=== PATIENT | female | born 1980 | race Caucasian/White ===

== ENCOUNTER 2016-09-04 18:40 | Emergency (ER) | payer MEDICAID ==
[2016-07-12 16:23] VITALS: BMI 23.7
[~2016-09-04 18:40] MED LIST: ADDERALL XR 2020 MG; AMBIEN10 MG PO; ASPIRIN325 MG PO; CELEXA40 MG PO; CLONAZEPAM2 MG/TAB PO; DEMEROL50 MG PO; DESERYL100 MG PO; HYDROCODONE-APA1 TAB PO; IBUPROFEN600 MG PO; NEXIUM40 MG PO; PHENERGAN25 M1 PO; SOMA350 MG PO; XANAX1 MG PO
== END 2016-09-04 20:28 | disposition home or self-care (01) ==
LOC: D.ER 18:40
DX: S93.401A Sprain of unspecified ligament of right ankle, initial encounter (principal); W19.XXXA Unspecified fall, initial encounter; Y93.89 Activity, other specified; Y92.019 Unspecified place in single-family (private) house as the place of occurrence of the external cause

== ENCOUNTER 2016-09-05 13:15 | Emergency (ER) | payer MEDICAID ==
[2016-07-12 16:23] VITALS: BMI 23.7
== END 2016-09-05 15:45 | disposition home or self-care (01) ==
LOC: D.ER 13:15
DX: S82.891A Other fracture of right lower leg, initial encounter for closed fracture (principal); X58.XXXA Exposure to other specified factors, initial encounter; Y93.89 Activity, other specified; Y92.89 Other specified places as the place of occurrence of the external cause

== ENCOUNTER 2016-10-27 21:03 | Emergency (ER) | payer MEDICAID ==
[2016-07-12 16:23] VITALS: BMI 23.7
[2016-10-27 23:09] LABS: BASOPHILS 0.3 % (0.0-2.0); HEMATOCRIT 39.1 % (36.0-48.0); IMMATURE GRANULOCYTES 0.3 % (0-5); LYMPHOCYTES 28.4 % (15-50); MCH 30.9 pg (26.0-34.0); MCHC 33.2 g/dL (31.0-37.0); MCV 92.9 fL (80.0-100.0); MEAN PLATELET VOLUME 9.8 fL (7.4-10.4); MONOCYTES 5.9 % (2-11); NEUTROPHILS 62.1 % (40-80); PLATELET COUNT 242 10x3/uL (130-400); RBC 4.21 10x6/uL (4.00-5.40); WBC 6.8 10x3/uL (4.8-10.8)
[2016-10-27 23:29] LABS: ALBUMIN 3.4 g/dL (3.4-5.0); ALKALINE PHOSPHATASE 61 U/L (46-116); ALT (SGPT) 39 U/L (10-68); BILIRUBIN - TOTAL 0.37 mg/dL (0.2-1.3); CALC OSMOLALITY 280 mosm/kg (275-300); CALCIUM 7.9 mg/dL (8.5-10.1); CHLORIDE - SERUM 106 mmol/L (98-107); CREATININE - SERUM 0.6 mg/dL (0.6-1.3); GLUCOSE 110 mg/dL (74-106); POTASSIUM - SERUM 3.8 mmol/L (3.5-5.1); PROTEIN - SERUM 6.9 g/dL (6.4-8.2); SODIUM 141 mmol/L (136-145); UREA NITROGEN 9 mg/dL (7-18); eGFR NON AFRICAN AMERICAN > 90 mL/min (90-120)
[2016-10-27 23:30] LABS: HCG SERUM NEGATIVE (NEGATIVE)
[2016-10-27 23:38] LABS: APTT 31.3 SECONDS (22.8-39.4); INR 0.94 (0.85-1.17); PROTIME 12.4 SECONDS (11.6-15.0)
== END 2016-10-28 00:04 | disposition home or self-care (01) ==
LOC: D.ER 21:03
PROVIDERS: Family Medicine
DX: N93.9 Abnormal uterine and vaginal bleeding, unspecified (principal)

== ENCOUNTER 2016-10-30 18:26 | Emergency (ER) | payer MEDICAID ==
[2016-07-12 16:23] VITALS: BMI 23.7
[2016-10-30 19:29] LABS: BASOPHILS 0.3 % (0.0-2.0); EOSINOPHILS 1.9 % (0-7); HEMATOCRIT 43.1 % (36.0-48.0); HEMOGLOBIN 14.4 g/dL (12-16); IMMATURE GRANULOCYTES 0.1 % (0-5); LYMPHOCYTES 24.8 % (15-50); MCH 31.6 pg (26.0-34.0); MCHC 33.4 g/dL (31.0-37.0); MCV 94.7 fL (80.0-100.0); MEAN PLATELET VOLUME 9.9 fL (7.4-10.4); MONOCYTES 4.7 % (2-11); NEUTROPHILS 68.2 % (40-80); PLATELET COUNT 233 10x3/uL (130-400); RBC 4.55 10x6/uL (4.00-5.40); RDW 13.4 % (11.5-14.5); WBC 6.7 10x3/uL (4.8-10.8)
== END 2016-10-30 20:01 | disposition home or self-care (01) ==
LOC: D.ER 18:26
PROVIDERS: Emergency Medicine
DX: N93.8 Other specified abnormal uterine and vaginal bleeding (principal); F17.200 Nicotine dependence, unspecified, uncomplicated

== ENCOUNTER 2016-11-05 23:43 | Emergency (ER) | payer MEDICAID ==
[2016-07-12 16:23] VITALS: BMI 23.7
[2016-11-06 00:17] LABS: BASOPHILS 0.5 % (0.0-2.0); EOSINOPHILS 2.2 % (0-7); HEMOGLOBIN 13.6 g/dL (12-16); IMMATURE GRANULOCYTES 0.3 % (0-5); LYMPHOCYTES 36.1 % (15-50); MCH 30.8 pg (26.0-34.0); MCHC 33.2 g/dL (31.0-37.0); MEAN PLATELET VOLUME 10.1 fL (7.4-10.4); MONOCYTES 6.5 % (2-11); NEUTROPHILS 54.4 % (40-80); PLATELET COUNT 257 10x3/uL (130-400); RBC 4.41 10x6/uL (4.00-5.40); RDW 13.1 % (11.5-14.5); WBC 6.5 10x3/uL (4.8-10.8)
[2016-11-06 02:39] LABS: ALBUMIN 3.7 g/dL (3.4-5.0); ALKALINE PHOSPHATASE 78 U/L (46-116); ALT (SGPT) 46 U/L (10-68); BILIRUBIN - TOTAL 0.52 mg/dL (0.2-1.3); CALC OSMOLALITY 278 mosm/kg (275-300); CALCIUM 8.6 mg/dL (8.5-10.1); CARBON DIOXIDE 23.3 mmol/L (21.0-32.0); CHLORIDE - SERUM 105 mmol/L (98-107); CREATININE - SERUM 0.8 mg/dL (0.6-1.3); GLUCOSE 102 mg/dL (74-106); POTASSIUM - SERUM 3.4 mmol/L (3.5-5.1); PROTEIN - SERUM 7.2 g/dL (6.4-8.2); SODIUM 140 mmol/L (136-145); UREA NITROGEN 12 mg/dL (7-18); eGFR NON AFRICAN AMERICAN 85 mL/min (90-120)
[2016-11-06 02:41] LABS: AMYLASE - SERUM 47 U/L (25-115); LIPASE 244 U/L (73-393); MAGNESIUM - SERUM 1.8 mg/dL (1.8-2.4); PHOSPHOROUS 4.9 mg/dL (2.5-4.9)
[2016-11-06 02:48] LABS: TROPONIN-I < 0.017 ng/mL (0.000-0.060)
--- NOTE | 2016-11-06 04:19 | NUR ---
CT WAS DELAYED DUE TO INSUFFICIENT IV ACCESS. RN TO COME AND START A NEW ONE.
== END 2016-11-06 06:12 | disposition home or self-care (01) ==
LOC: D.ER 23:43
PROVIDERS: Surgery
DX: R10.31 Right lower quadrant pain (principal); N93.8 Other specified abnormal uterine and vaginal bleeding; A48.3 Toxic shock syndrome

== ENCOUNTER 2016-11-18 03:51 | Emergency (ER) | payer MEDICAID ==
[2016-07-12 16:23] VITALS: BMI 23.7
== END 2016-11-18 04:50 | disposition home or self-care (01) ==
LOC: D.ER 03:51
DX: G89.18 Other acute postprocedural pain (principal)

== ENCOUNTER 2017-02-20 19:22 | Emergency (ER) | payer MEDICAID ==
[2016-07-12 16:23] VITALS: BMI 23.7
== END 2017-02-20 21:04 | disposition left against medical advice (07) ==
LOC: D.ER 19:22
DX: R10.9 Unspecified abdominal pain (principal)

== ENCOUNTER 2017-02-23 02:35 | Emergency (ER) | payer MEDICAID ==
[2016-07-12 16:23] VITALS: BMI 23.7
[2017-02-23 03:22] LABS: APPEARANCE HAZY (CLEAR); BILIRUBIN NEGATIVE (NEGATIVE); COLOR DK YELLOW (YELLOW); GLUCOSE NEGATIVE (NEGATIVE); KETONE NEGATIVE (NEGATIVE); LEUKOCYTE ESTERASE 2+ (NEGATIVE); NITRITE NEGATIVE (NEGATIVE); PROTEIN 2+ mg/dL (NEGATIVE); SPECIFIC GRAVITY 1.025 (1.005-1.020)
[2017-02-23 03:24] LABS: BACTERIA MODERATE /hpf (NONE SEEN); EPITHELIAL CELLS 0-5 /hpf (0-5); MUCUS <1+ /lpf (NONE SEEN); RED CELLS - URINE 0-5 /hpf (0-5)
[2017-02-23 03:43] LABS: BASOPHILS 0.1 % (0-2); EOSINOPHILS 0.6 % (0-7); HEMATOCRIT 39.9 % (36.0-48.0); HEMOGLOBIN 13.2 g/dL (12-16); IMMATURE GRANULOCYTES 0.3 % (0-5); MCH 30.9 pg (26.0-34.0); MCHC 33.1 g/dL (31.0-37.0); MCV 93.4 fL (80.0-100.0); MEAN PLATELET VOLUME 9.7 fL (7.4-10.4); MONOCYTES 9.7 % (2-11); NEUTROPHILS 79.3 % (40-80); PLATELET COUNT 194 10x3/uL (130-400); RBC 4.27 10x6/uL (4.00-5.40); RDW 12.9 % (11.5-14.5); WBC 7.2 10x3/uL (4.8-10.8)
[2017-02-23 03:48] LABS: HCG SERUM NEGATIVE (NEGATIVE)
[2017-02-23 03:56] LABS: ALBUMIN 3.4 g/dL (3.4-5.0); ALKALINE PHOSPHATASE 84 U/L (46-116); ALT (SGPT) 38 U/L (10-68); AMYLASE - SERUM 38 U/L (25-115); BILIRUBIN - TOTAL 0.98 mg/dL (0.2-1.3); CALC OSMOLALITY 274 mosm/kg (275-300); CALCIUM 8.5 mg/dL (8.5-10.1); CARBON DIOXIDE 24.2 mmol/L (21.0-32.0); CHLORIDE - SERUM 103 mmol/L (98-107); CREATININE - SERUM 0.8 mg/dL (0.6-1.3); GLUCOSE 112 mg/dL (74-106); LIPASE 155 U/L (73-393); POTASSIUM - SERUM 4.1 mmol/L (3.5-5.1); PROTEIN - SERUM 7.4 g/dL (6.4-8.2); SODIUM 137 mmol/L (136-145); UREA NITROGEN 13 mg/dL (7-18); eGFR NON AFRICAN AMERICAN 85 mL/min (90-120)
== END 2017-02-23 06:13 | disposition home or self-care (01) ==
LOC: D.ER 02:35
PROVIDERS: Family Medicine
DX: R10.9 Unspecified abdominal pain (principal); N10 Acute pyelonephritis; A64 Unspecified sexually transmitted disease; A59.01 Trichomonal vulvovaginitis; F17.200 Nicotine dependence, unspecified, uncomplicated

== ENCOUNTER 2017-06-19 18:38 | Emergency (ER) | payer MEDICAID ==
[2016-07-12 16:23] VITALS: BMI 23.7
== END 2017-06-19 21:38 | disposition home or self-care (01) ==
LOC: D.ER 18:38
DX: S43.401A Unspecified sprain of right shoulder joint, initial encounter (principal); W18.2XXA Fall in (into) shower or empty bathtub, initial encounter; Y93.E1 Activity, personal bathing and showering; Y92.022 Bathroom in mobile home as the place of occurrence of the external cause; F17.200 Nicotine dependence, unspecified, uncomplicated

== ENCOUNTER 2017-10-19 20:43 | Emergency (ER) | payer SELFPAY ==
[2016-07-12 16:23] VITALS: BMI 23.7
== END 2017-10-19 23:10 | disposition home or self-care (01) ==
LOC: D.ER 20:43
DX: K08.89 Other specified disorders of teeth and supporting structures (principal); K02.9 Dental caries, unspecified; F17.200 Nicotine dependence, unspecified, uncomplicated

== ENCOUNTER 2018-02-07 13:00 | Emergency (ER) | payer MEDICAID ==
[~2018-02-07] VITALS: Ht 180.3 cm; Wt 81.8 kg
[2018-02-07 13:10] VITALS: Ht 180.3 cm; Wt 81.8 kg
[2018-02-07 13:56] LABS: UDS - AMPHET POSITIVE QUAL (NEGATIVE); UDS - BARB NEGATIVE QUAL (NEGATIVE); UDS - BENZO NEGATIVE QUAL (NEGATIVE); UDS - COCAINE NEGATIVE QUAL (NEGATIVE); UDS - OPIATE NEGATIVE QUAL (NEGATIVE); UDS - PCP NEGATIVE QUAL (NEGATIVE); UDS - THC NEGATIVE QUAL (NEGATIVE)
[2018-02-07 14:03] LABS: APPEARANCE CLEAR (CLEAR); BILIRUBIN NEGATIVE (NEGATIVE); COLOR YELLOW (YELLOW); GLUCOSE NEGATIVE (NEGATIVE); KETONE NEGATIVE (NEGATIVE); NITRITE NEGATIVE (NEGATIVE); PROTEIN NEGATIVE (NEGATIVE); UROBILINOGEN NORMAL (NORMAL)
[2018-02-07 14:04] LABS: BACTERIA MODERATE /hpf (NONE SEEN); EPITHELIAL CELLS 0-5 /hpf (0-5); RED CELLS - URINE OCC /hpf (0-5)
[2018-02-07 14:05] LABS: MUCUS <1+ /lpf (NONE SEEN)
[2018-02-07] MEDS ORDERED: MACROBID100 MG PO (15:05)
[2018-02-07 15:34] VITALS: BP 121/75
== END 2018-02-07 15:35 | disposition home or self-care (01) ==
LOC: D.ER 13:00
PROVIDERS: Family Medicine
DX: N39.0 Urinary tract infection, site not specified (principal); F17.200 Nicotine dependence, unspecified, uncomplicated

== ENCOUNTER 2018-06-08 08:54 | Emergency (ER) | payer MEDICAID ==
[~2018-06-08] VITALS: Ht 180.3 cm; Wt 77.3 kg
[~2018-06-08 08:54] MED LIST changes: +MACROBID100 MG PO
[2018-06-08 08:57] VITALS: Ht 180.3 cm; Wt 77.3 kg
[2018-06-08] MEDS ORDERED: KLONOPIN1 MG PO (09:21)
[2018-06-08 09:46] VITALS: BP 136/086
== END 2018-06-08 09:48 | disposition home or self-care (01) ==
LOC: D.ER 08:54
DX: F41.1 Generalized anxiety disorder (principal); F17.200 Nicotine dependence, unspecified, uncomplicated